=== PATIENT | female | born 2005 | race Hispanic/Latino ===

== ENCOUNTER 2023-01-17 16:28 | Day surgery (SDC) | payer OTHER ==
[2023-01-17] MEDS ORDERED: hydrALAZINE 20 MG/ML VIAL SLOW IVP PRN (17:55)
== END 2023-01-17 19:10 | disposition home or self-care (01) ==
LOC: CSHLD/OP 16:28
PROVIDERS: ATTEND Family Medicine
DX: O36.8130 Decreased fetal movements, third trimester, not applicable or unspecified (principal); O24.410 Gestational diabetes mellitus in pregnancy, diet controlled; O32.1XX0 Maternal care for breech presentation, not applicable or unspecified; Z79.899 Other long term (current) drug therapy; Z3A.35 35 weeks gestation of pregnancy
CPT/HCPCS: 76819; 99282

== ENCOUNTER 2023-01-26 10:04 | Inpatient (IN) | payer MEDICAID, OTHER ==
[2023-02-10] MEDS ORDERED: Misoprostol 200 MCG TAB PR PRN (22:23)
[2023-02-10] MEDS ORDERED: hydrALAZINE 20 MG/ML VIAL SLOW IVP PRN (22:23)
[2023-02-10] MEDS ORDERED: Carboprost 250 MCG/ML AMP IM PRN (22:23)
[2023-02-10] MEDS ORDERED: Tranexamic Acid 1,000 MG/10 ML VIAL IVP PRN (22:23)
[2023-02-10] MEDS ORDERED: Ondansetron PF 4 MG/2 ML Vial IVP PRN (22:23)
[2023-02-10] MEDS ORDERED: Methylergonovine 0.2 MG/ML VIAL IM PRN (22:23)
[2023-02-10] MEDS ORDERED: Promethazine HCl 25 MG/ML VIAL IM PRN (22:23)
[2023-02-10] MEDS ORDERED: Acetaminophen 500 MG TAB PO PRN (22:23)
[2023-02-10] MEDS ORDERED: Lidocaine 1% (PF) 30 ML VIAL SC PRN (22:23)
[2023-02-10] MEDS ORDERED: Ibuprofen 800 MG TAB PO PRN (22:23)
[2023-02-10] MEDS ORDERED: Diphenoxylate HCl/Atropine Tablet PO PRN (22:23)
[2023-02-10] MEDS ORDERED: HYDROcodone/Acetaminophen 5/325 mg Tablet PO PRN (22:23)
[2023-02-10 22:48] VITALS: BMI 34.5
[2023-02-10] MEDS ORDERED: fentaNYL 50 mcg/mL 1 mL Vial SLOW IVP PRN (22:54)
[2023-02-10] MEDS ORDERED: NS w/ Oxytocin 30 units 500 ML IV SCH ×3 (23:00)
[2023-02-10 23:25] LABS: Hemoglobin 11.6 g/dL (12.0-15.5); Mean Corpuscular HGB CONC 34.2 g/dL (32.0-36.0); Mean Corpuscular Hemoglobin 30.6 pg (27.0-33.0); Mean Corpuscular Volume 89.4 fl (81.6-98.3); Mean Platelet Volume 10.1 fl (7.4-10.4); Platelet Count 228 10x3/uL (150-450); RBC Distribution Width 13.3 % (11.5-14.5); Red Blood Cell (RBC) Count 3.79 10x6/uL (3.90-5.03); White Blood Cell (WBC) Count 8.1 10x3/uL (3.5-10.5)
[2023-02-10] MEDS: Misoprostol 100 MCG TAB VAG SCH (23:47)
[2023-02-10 23:55] LABS: HBSAg Index 0.11 S/CO (0-0.99); Hep B Surf Ag - L&D Non-Reactive S/CO (NonReactive)
[2023-02-10 23:57] LABS: Syphilis Antibody Nonreactive (Nonreactive); Syphilis Antibody Index 0.02 S/CO (<1.00 Non-Reactive)
[2023-02-11] MEDS: Misoprostol 100 MCG TAB VAG SCH ×4 (02:52→12:56)
[2023-02-11] MEDS: Lactated Ringer's 1,000 ML IV SCH ×2 (09:45→16:43)
[2023-02-11] MEDS ORDERED: Penicillin G Potassium 5 MILL.UNITS VIAL ONE (12:03)
[2023-02-11] MEDS ORDERED: Penicillin G Potassium 5 MILL.UNITS in Sodium Chloride 0.9% 100 ML IVPB SCH (13:00)
[2023-02-11] MEDS: Penicillin G 2.5 MILL.units 50 ML IVPB SCH ×2 (17:08→21:18)
[2023-02-12] MEDS ORDERED: Fentanyl 2 mcg/Bup 0.1% Cadd 100 ML ONE (01:30)
[2023-02-12] MEDS: Penicillin G 2.5 MILL.units 50 ML IVPB SCH ×3 (01:47→09:59)
[2023-02-12] MEDS ORDERED: Acetaminophen 325 MG TAB PO PRN (02:05)
[2023-02-12] MEDS ORDERED: Promethazine HCl 25 MG/ML VIAL IM PRN ×2 (02:05→07:06)
[2023-02-12] MEDS ORDERED: Lactated Ringer's 500 ML IV PRN (02:05)
[2023-02-12] MEDS ORDERED: Ondansetron PF 4 MG/2 ML Vial IVP PRN ×3 (02:05→09:42)
[2023-02-12] MEDS ORDERED: ePHEDrine Sulfate 50 MG/10 ML VIAL SLOW IVP PRN (02:05)
[2023-02-12] MEDS ORDERED: Naloxone HCl 0.4 mg/ml Vial IVP PRN ×4 (02:05→07:06)
[2023-02-12] MEDS ORDERED: diphenhydrAMINE 50 MG/ML VIAL IVP PRN ×2 (02:05→07:06)
[2023-02-12] MEDS ORDERED: Moisturizing Cream (Eucerin) 113 GM JAR TOP PRN ×2 (02:05→07:06)
[2023-02-12] MEDS ORDERED: Fentanyl 2 mcg/Bupivacaine 0.1% Cassette 100 ML EPIDURAL SCH (02:15)
[2023-02-12] MEDS ORDERED: Communication Order-Pharmacy FS SCH ×2 (02:15→07:15)
[2023-02-12] MEDS ORDERED: Azithromycin 500 MG VIAL ONE (06:15)
[2023-02-12] MEDS ORDERED: CEFAZOLIN 2 GM VIAL ONE (06:15)
[2023-02-12] MEDS ORDERED: Famotidine/PF 20 mg/2ml Vial ONE (06:16)
[2023-02-12] MEDS ORDERED: Bicitra 30 ML UDCUP PO PRN (06:27)
[2023-02-12] MEDS ORDERED: Famotidine/PF 20 mg/2ml Vial SLOW IVP PRN (06:27)
[2023-02-12] MEDS ORDERED: Azithromycin 500 MG in Sodium Chloride 0.9% 250 ML 250 ML IVPB SCH (06:30)
[2023-02-12] MEDS ORDERED: CEFAZOLIN 2 GM in Sodium Chloride 0.9% 100 ML IVPB SCH (06:30)
[2023-02-12] MEDS ORDERED: Morphine PF 10 MG/10 ML VIAL ONE (06:31)
[2023-02-12] MEDS ORDERED: Oxytocin 10 UNITS/ML VIAL ONE (06:31)
[2023-02-12] MEDS ORDERED: Ondansetron PF 4 MG/2 ML Vial ONE (06:31)
[2023-02-12] MEDS ORDERED: Ketorolac Tromethamine 30 MG/ML VIAL IVP PRN (07:06)
[2023-02-12] MEDS ORDERED: Naloxone HCl 0.4 mg/ml Vial IV PRN (07:06)
[2023-02-12] MEDS ORDERED: Promethazine HCl 25 MG SUPP PR PRN (07:06)
[2023-02-12] MEDS ORDERED: Ondansetron HCl/PF 4 MG/2 ML Vial IVP PRN (07:07)
[2023-02-12] MEDS ORDERED: Fentanyl 100 MCG/2 ML VIAL SLOW IVP PRN (07:07)
[2023-02-12] MEDS ORDERED: Meperidine HCl/PF 25 MG/ML VIAL SLOW IVP PRN (07:07)
[2023-02-12] MEDS ORDERED: Ketorolac Tromethamine 30 MG/ML VIAL IVP SCH (07:15)
[2023-02-12] MEDS ORDERED: Bupivacaine HCl 0.5%/Epinephrine 1:200,000/PF 30 ml Vial ONE (08:00)
[2023-02-12] MEDS ORDERED: Lidocaine 2% MPF 10 ML AMP (For Epidural Use) ONE (08:00)
[2023-02-12] MEDS ORDERED: Simethicone Chewable 80 MG TAB PO PRN (09:42)
[2023-02-12] MEDS ORDERED: NS w/ Oxytocin 30 units 500 ML IV SCH (09:42)
[2023-02-12] MEDS ORDERED: diphenhydrAMINE 25 MG CAP PO PRN (09:42)
[2023-02-12] MEDS ORDERED: Lanolin Ointment 7 GM TUBE TOP PRN (09:42)
[2023-02-12] MEDS ORDERED: Misoprostol 200 MCG TAB PR PRN (09:42)
[2023-02-12] MEDS ORDERED: Methylergonovine 0.2 MG/ML VIAL IM PRN (09:42)
[2023-02-12] MEDS ORDERED: hydrALAZINE 20 MG/ML VIAL SLOW IVP PRN (09:42)
[2023-02-12] MEDS ORDERED: Boostrix 0.5 ML (Tdap) VIAL (>/=7 yrs of age) IM ONE (09:42)
[2023-02-12] MEDS: Lactated Ringer's 1,000 ML IV SCH ×2 (09:58→09:59)
[2023-02-12] MEDS ORDERED: Prenatal Vitamin 1 TAB PO SCH (10:00)
[2023-02-12] MEDS ORDERED: Docusate 100 MG CAP PO SCH (10:00)
[2023-02-12] MEDS ORDERED: Ferrous Sulfate 325 MG TAB PO SCH (10:00)
[2023-02-12] MEDS: Ketorolac Tromethamine 30 MG/ML VIAL IVP SCH ×2 (15:18→21:15)
[2023-02-13] MEDS: Ketorolac Tromethamine 30 MG/ML VIAL IVP SCH ×2 (03:29→08:35)
[2023-02-13 04:00] LABS: Hemoglobin 9.8 g/dL (12.0-15.5); Mean Corpuscular Hemoglobin 31.1 pg (27.0-33.0); Mean Corpuscular Volume 91.4 fl (81.6-98.3); Mean Platelet Volume 9.8 fl (7.4-10.4); Platelet Count 169 10x3/uL (150-450); RBC Distribution Width 13.5 % (11.5-14.5); Red Blood Cell (RBC) Count 3.15 10x6/uL (3.90-5.03); White Blood Cell (WBC) Count 11.1 10x3/uL (3.5-10.5)
[2023-02-13] MEDS: Docusate 100 MG CAP PO SCH ×3 (08:36→21:49)
[2023-02-13] MEDS: Prenatal Vitamin 1 TAB PO SCH (08:36)
[2023-02-13] MEDS: Ferrous Sulfate 325 MG TAB PO SCH ×3 (08:37→21:49)
[2023-02-13] MEDS: Ibuprofen 800 MG TAB PO SCH ×2 (14:31→21:49)
[2023-02-13] MEDS: HYDROcodone/Acetaminophen 5/325 mg Tablet PO PRN (21:51)
[2023-02-14] MEDS: Ibuprofen 800 MG TAB PO SCH ×3 (04:50→21:51)
[2023-02-14] MEDS: HYDROcodone/Acetaminophen 5/325 mg Tablet PO PRN ×4 (04:51→21:56)
[2023-02-14] MEDS: Ferrous Sulfate 325 MG TAB PO SCH ×2 (08:15→21:51)
[2023-02-14] MEDS: Prenatal Vitamin 1 TAB PO SCH (08:15)
[2023-02-14] MEDS: Docusate 100 MG CAP PO SCH ×2 (08:15→21:51)
[2023-02-14 20:21] VITALS: TEMP 97.9
[2023-02-15] MEDS: Ibuprofen 800 MG TAB PO SCH (05:07)
[2023-02-15] MEDS: HYDROcodone/Acetaminophen 5/325 mg Tablet PO PRN ×2 (05:09→08:31)
[2023-02-15] MEDS: Ferrous Sulfate 325 MG TAB PO SCH (08:30)
[2023-02-15] MEDS: Prenatal Vitamin 1 TAB PO SCH (08:30)
[2023-02-15] MEDS: Docusate 100 MG CAP PO SCH (08:31)
[2023-02-15 08:54] VITALS: BP 109/56
== END 2023-02-15 14:40 | disposition home or self-care (01) | DRG 788 ==
LOC: CSHLD 02-10 22:07 → CSHPP 02-12 09:35
PROVIDERS: ADMIT Family Medicine; ATTEND Family Medicine
PROC: 3E0P7VZ Introduction of Hormone into Female Reproductive, Via Natural or Artificial Opening (ICD-10-PCS; 2023-02-11)
PROC: 10907ZC Drainage of Amniotic Fluid, Therapeutic from Products of Conception, Via Natural or Artificial Opening (ICD-10-PCS; 2023-02-11)
PROC: 10D00Z0 Extraction of Products of Conception, High, Open Approach (ICD-10-PCS; principal; 2023-02-12)
PROC: 10H07YZ Insertion of Other Device into Products of Conception, Via Natural or Artificial Opening (ICD-10-PCS; 2023-02-12)
DX: O24.420 Gestational diabetes mellitus in childbirth, diet controlled (principal); Z3A.39 39 weeks gestation of pregnancy; Z37.0 Single live birth; Z79.899 Other long term (current) drug therapy; E66.9 Obesity, unspecified; O99.214 Obesity complicating childbirth; O99.824 Streptococcus B carrier state complicating childbirth; O76 Abnormality in fetal heart rate and rhythm complicating labor and delivery
CPT/HCPCS: 36416; 51702; 74018; 85027; 86780; 86850; 86900; 86901; 87340; J1885; J2274; J2405; J2540; J2590; J3010; J3490; J7120

== ENCOUNTER 2023-12-07 22:08 | Emergency (ER) | payer MEDICAID ==
[2023-12-07] MEDS ORDERED: methylPREDNISolone Sod Succ/PF 125 MG/2 ML VIAL ONE (23:32)
[2023-12-07] MEDS ORDERED: Metoclopramide HCl 10 MG (2 mL) VIAL ONE (23:32)
[2023-12-07] MEDS ORDERED: diphenhydrAMINE 50 MG/ML VIAL ONE (23:32)
[2023-12-07] MEDS ORDERED: Ketorolac Tromethamine 30 MG (1 mL) VIAL ONE (23:33)
== END 2023-12-08 00:17 | disposition home or self-care (01) ==
LOC: CSHERS 22:08
DX: R51.9 Headache, unspecified (principal); F17.200 Nicotine dependence, unspecified, uncomplicated; F17.290 Nicotine dependence, other tobacco product, uncomplicated
CPT/HCPCS: 70450; 96365; 96375; J1200; J1885; J2765; J2930